=== PATIENT | male | born 1995 | race Caucasian/White ===

== ENCOUNTER 2020-01-08 07:08 | Emergency (ER) | payer OTHER ==
[~2020-01-08] VITALS: Ht 175.3 cm; Wt 63.6 kg
[2020-01-08 07:14] VITALS: BP 117/77
[2020-01-08] MEDS ORDERED: ALBU8HFA IH (07:14)
== END 2020-01-08 07:49 | disposition home or self-care (01) ==
LOC: EMS 07:10
DX: F17.210 Nicotine dependence, cigarettes, uncomplicated (principal); Z20.828 Contact with and (suspected) exposure to other viral communicable diseases
CPT/HCPCS: 87635